=== PATIENT | female | born 1950 | race Caucasian/White ===

== ENCOUNTER 2022-02-02 13:23 | Emergency (ER) | payer OTHER, SELFPAY ==
[2022-02-02 13:38] VITALS: BP 131/80; PULSE 75; RESP 16; TEMP 36.2; O2SAT 97; BMI 22.7
--- NOTE | 2022-02-02 14:04 | ED_ITS ---
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 Patient noted that last week her toe seen to be more swollen and there was a little bit of redness. It continues this week and she is concerned regarding possible tick bite. Patient runs through the [employer]. She does not remember seeing a tick but notes that this is a possibility. She has not had any fever or chills. She notes no wound that she can remember. It is tender to the touch. However, she states that she has been in dress shoes as again she is administer. Related Data Home Medications Medication Instructions Recorded Confirmed No Known Home Medications 02/02/22 02/02/22 Allergies Allergy/AdvReac Type Severity Reaction Status Date / Time No Known Drug Allergies Allergy Verified 02/02/22 13:42 Review of Systems Narrative: Denies body aches. Const: Denies: fever or chills Musculo: Reports: joint pain PFSH PFSH Social History Smoking Status: Never smoker Do you use any of these nicotine containing products: None Second hand tobacco smoke exposure: No How often do you have a drink containing alcohol: 2-3 times a week AUDIT-C Alcohol total score: 3 Non-prescribed substance use: denies use Exam Const: Vital Signs, click to edit/add: Vital Signs - 24 hr 02/02/22 13:38 Temperature 97.2 F L Pulse Rate [Pulse Oximeter] 75 Respiratory Rate 16 Blood Pressure [Ri ght Upper Arm] 131/80 Pulse Oximetry 97 Oxygen Delivery Me thod Room Air Course Vital Signs Vital signs: Initial Vital Signs Temperature 97.2 F L 02/02/22 13:38 Temperature Source Temporal Artery Scan 02/02/22 13:38 Pulse Rate 75 02/02/22 13:38 Respiratory Rate 16 02/02/22 13:38 Blood Pressure 131/80 02/02/22 13:38 Blood Pressure Mean 97 02/02/22 13:38 Blood Pressure Position Sitting 02/02/22 13:38 Pulse Oximetry 97 02/02/22 13:38 Oxygen Delivery Method 02/02/22 13:38 Vital Signs Temperature 97.2 F L 02/02/22 13:38 Pulse Rate 75 02/02/22 13:38 Respiratory Rate 16 02/02/22 13:38 Blood Pressure 131/80 02/02/22 13:38 Pulse Oximetry 97 02/02/22 13:38 Oxygen Delivery Method 02/02/22 13:38 Temperature 97.2 F L 02/02/22 13:38 Pulse Rate 75 02/02/22 13:38 Respiratory Rate 16 02/02/22 13:38 Blood Pressure 131/80 02/02/22 13:38 Pulse Oximetry 97 02/02/22 13:38 Oxygen Delivery Method 02/02/22 13:38 MDM - Wound/Laceration MDM Narrative Medical decision making narrative: 1. Superficial cellulitis-at this time I do not think that we are dealing with a tick bite. I did state to Bre that I could not tell her for 100% that it was not a tick bite be given the fact that she is wearing shoes [place] be highly unusual attachment site. When 1 looks at her 2nd toe she has a corn or callus formation on the PIP joint. I am wondering if this was indeed the case on the 3rd toe and somehow she had some shearing of the skin or pressure in this area. She does have some slight surrounding erythema and therefore will treat her for cellulitis but will use doxycycline as the antibiotic of choice. Doxycycline 100 mg p.o. b.i.d. times 10 days. If she develops fever chills she will need to be seen and at that point have a tick panel done. I did state we would not be doing a tick panel in the ED today. Would recommend soaking of the wound and continued monitoring. 2. Disposition-home. Follow-up with primary MD. Return for worsening symptoms. Medical Records Attestation: I reviewed the patient's medical records. Discharge Plan Discharge Clinical Impression: Cellulitis Patient Disposition: Home, Self-Care Condition: Improved Additional Instructions: Start doxycycline as directed. Follow-up with your primary MD for ongoing symp toms. Seek medical attention for fever, chills, vomiting, increasing redness and as needed. Prescriptions: No Action No Known Home Medications Follow Up/Referrals: Genna Ramos MD [Primary Care Provider] - Stand Alone Forms: [employer] Info Instructions
--- NOTE | 2022-02-02 14:38 | ED_ITS ---
HPI - Wound/Laceration General Time Seen by Provider: 14:00 Date Seen: 02/02/22 Chief Complaint: Laceration/Wound Stated Complaint: possible tick bite on left toe Time Seen by Provider: 02/02/22 13:54 Source: patient, RN notes reviewed and old records reviewed Mode of arrival: ambulatory Limitations: no limitations History of Present Illness Onset (ago): day(s) Place: outdoors Associated symptoms: pain Related Data Home Medications Medication Instructions Recorded Confirmed No Known Home Medications 02/02/22 02/02/22 Allergies Allergy/AdvReac Type Severity Reaction Status Date / Time No Known Drug Allergies Allergy Verified 02/02/22 13:42 Review of Systems Const: Denies: fever, chills, fatigue or night sweats Cardio: Denies: chest pain or shortness of breath with exertion Resp: Denies: shortness of breath or cough GI: Denies: nausea Integ/Breast: Reports: skin tenderness; Denies: rash Neuro: Denies: headache Endo: Denies: fatigue Allergy/Immuno: Denies: hives PFSH PFSH Social History Smoking Status: Never smoker Do you use any of these nicotine containing products: None Second hand tobacco smoke exposure: No How often do you have a drink containing alcohol: 2-3 times a week AUDIT-C Alcohol total score: 3 Non-prescribed substance use: denies use Exam Narrative: Exam Narrative: Examination shows a dime-sized area firm callus with what appears to be dried in the center over the IP joint of the left 3rd toe. The 2nd toe has callus or corn formation over similar area. On the 3rd toe there is an peripheral area of mild erythema. Patient appears to be tender to the touch in this area. It is not excessively. Const: Vital Signs, click to edit/add: Vital Signs - 24 hr 02/02/22 13:38 Temperature 97.2 F L Pulse Rate [Pulse Oximeter] 75 Respiratory Rate 16 Blood Pressure [Ri ght Upper Arm] 131/80 Pulse Oximetry 97 Oxygen Delivery Me thod Room Air Course Vital Signs Vital signs: Initial Vital Signs Temperature 97.2 F L 02/02/22 13:38 Temperature Source Temporal Artery Scan 02/02/22 13:38 Pulse Rate 75 02/02/22 13:38 Respiratory Rate 16 02/02/22 13:38 Blood Pressure 131/80 02/02/22 13:38 Blood Pressure Mean 97 02/02/22 13:38 Blood Pressure Position Sitting 02/02/22 13:38 Pulse Oximetry 97 02/02/22 13:38 Oxygen Delivery Method 02/02/22 13:38 Vital Signs Temperature 97.2 F L 02/02/22 13:38 Pulse Rate 75 02/02/22 13:38 Respiratory Rate 16 02/02/22 13:38 Blood Pressure 131/80 02/02/22 13:38 Pulse Oximetry 97 02/02/22 13:38 Oxygen Delivery Method 02/02/22 13:38 Temperature 97.2 F L 02/02/22 13:38 Pulse Rate 75 02/02/22 13:38 Respiratory Rate 16 02/02/22 13:38 Blood Pressure 131/80 02/02/22 13:38 Pulse Oximetry 97 02/02/22 13:38 Oxygen Delivery Method 02/02/22 13:38 MDM - Wound/Laceration MDM Narrative Medical decision making narrative: 1. Cellulitis-patient appears to have callus formation that was perhaps further irritated or shear it is there does appear to be some inner callus dried blood. I did tell patient I could not with absolute 100 per certainty tell her that this was not from a tick bite. However it would be highly unusual spot for a tick to bite. That being said she does have surrounding erythema of this area and thus will treat with doxycycline 100 mg p.o. b.i.d. times 10 days. This would both treat cellulitis as well as any possibility of a tick bite. Patient does not have a history of allergies. Would continue to monitor this area and s [place] medical attention for worsening symptoms. Discharge Plan Discharge Clinical Impression: Cellulitis Patient Disposition: Home, Self-Care Condition: Improved Additional Instructions: Start doxycycline as directed. Follow-up with your primary MD for ongoing symptoms. Seek medical attention for fever, chills, vomiting, increasing redness and as needed. Prescriptions: No Action No Known Home Medications Follow Up/Referrals: Genna Ramos MD [Primary Care Provider] - Stand Alone Forms: [employer] Payment Info Instructions
== END 2022-02-02 14:49 | disposition home or self-care (01) ==
PROVIDERS: Emergency Provider Family Medicine; PCP Family Medicine
DX: L03.032 Cellulitis of left toe (principal)
CPT/HCPCS: 99282; 99283; 99284

== ENCOUNTER 2023-02-02 07:42 | Outpatient (CLI) | payer OTHER, SELFPAY | END 2023-02-02 07:43 | disposition home or self-care (01) | LOC: NFLDREF 11:10 | PROVIDERS: PCP Family Medicine; Referring Provider Family Medicine; Visit Provider Family Medicine | DX: Z00.00 Encounter for general adult medical examination without abnormal findings (principal); R79.89 Other specified abnormal findings of blood chemistry; R17 Unspecified jaundice; Z13.6 Encounter for screening for cardiovascular disorders | CPT/HCPCS: 80053; 80061 ==

== ENCOUNTER 2023-04-21 07:44 | Outpatient (CLI) | payer OTHER, SELFPAY ==
--- NOTE | 2023-04-21 09:21 | W.ANESCHARGE ---
Anesthesia Charges Start Date/Time Anesthesia Start Date: 04/21/23 Anesthesia Start Time: 08:46 Stop Date/Time Anesthesia Stop Date: 04/21/23 Anesthesia Stop Time: 09:19
--- NOTE | 2023-04-21 12:15 | W.ANESCHARGE ---
Anesthesia Charges Start Date/Time Anesthesia Start Date: 04/21/23 Anesthesia Start Time: 08:46 Stop Date/Time Anesthesia Stop Date: 04/21/23 Anesthesia Stop Time: 09:19 Summary Extremes of Age - Over 70 or under 1: MDA
== END 2023-04-21 07:45 | disposition home or self-care (01) ==
LOC: OP CLINIC 07:44
PROVIDERS: PCP Family Medicine; Visit Provider Surgery
DX: Z12.11 Encounter for screening for malignant neoplasm of colon (principal); K63.5 Polyp of colon
CPT/HCPCS: 00811; 45385; 88305; 99100; J2704

== ENCOUNTER 2023-05-07 14:30 | Outpatient (CLI) | payer OTHER, SELFPAY ==
--- NOTE | 2023-05-07 15:00 | CRLHL7_ITS ---
For Patients: As a result of the Century Cures Act, medical imaging exams and procedure reports are released immediately into your electronic medical record. You may view this report before your referring provider. If you have questions, please contact your health care provider. DXA BONE MINERAL DENSITY STUDY Reason for exam: Asymptomatic menopausal state. Current height (in): 61. Weight (lb): 130. Menopause age: 59. Ethnicity: White. 1. Have you had a previous hip or vertebral fracture? No. 2. Have you had any fractures during your adult life which did not result from significant trauma (e.g., auto accident)? No. 3. Did either of your parents have a hip fracture? Yes. 4. Do you smoke? No. 5. Have you ever taken Glucocorticoids? No. 6. Do you have rheumatoid arthritis? No. 7. Do you have secondary osteoporosis? No. 8. Do you drink 3 or more alcoholic drinks per day? No. 9. Are you being treated for osteoporosis? No. 10. Have you ever taken any of the following medications: Actonel, Evista, Fosamax, Miacalcin, Reclast, Boniva, Forteo, HRT (i.e., estrogen/hormone therapy), Protelos, Prolia, Vitamin D, Calcium, other ??? please specify. ANSWER: Yes, vitamin D and calcium. 11. Do you have any of the following medical conditions: Anorexia or bulimia, asthma or emphysema, end stage renal disease, hyperparathyroidism, any seizure disorders, cancer, inflammatory bowel diseases, hysterectomy, other ??? please specify. ANSWER: Yes, cancer. 12. What was your maximum height (inches)? 61.5. 13. Do you perform weight bearing exercise regularly? No. 14. Do you regularly consume dairy products? Yes. 15. Do you drink caffeinated beverages? Yes. If female: 16. At what age did your period start? 14. 17. Are you premenopausal? No. 18. How many full-term pregnancies have you had? 1. 19. Have you ever missed your period for more than 6 months in a row (not including or menopause)? No. TECHNIQUE: Bone mineral density study was performed using the [employer] FINDINGS: The results of the study expressed as bone mineral density (BMD) are as follows: Lumbar spine L1 to L4: BMD: 1.014 g/cm2. T-score: -0.3. Z-score: 1.9 Neck Left: BMD: 0.606 g/cm2. T-score: -2.2. Z-score: -0.3 Right: BMD: 0.528 g/cm2. T-score: -2.9. Z-score: -1.0 Total Left: BMD: 0.705 g/cm2. T-score: -1.9. Z-score: -0.3 Right: BMD: 0.666 g/cm2. T-score: -2.3. Z-score: -0.7 IMPRESSION: Osteoporosis. Duane Judd M.D. Diagnostic Radiologist [email or web address] ENRIQUE/[email or web address] eng/Dictated by: Duane Judd MD @ 05/08/2023 8:29:00 AM (Electronically Signed)
== END 2023-05-07 14:31 | disposition home or self-care (01) ==
LOC: RAD 14:31
PROVIDERS: PCP Family Medicine; Visit Provider Family Medicine
DX: Z78.0 Asymptomatic menopausal state (principal); M81.0 Age-related osteoporosis without current pathological fracture
CPT/HCPCS: 77080

== ENCOUNTER 2023-05-08 10:00 | Outpatient (CLI) | payer OTHER, SELFPAY ==
--- NOTE | 2023-05-08 10:15 | CRLHL7_ITS ---
For Patients: As a result of the Century Cures Act, medical imaging exams and procedure reports are released immediately into your electronic medical record. You may view this report before your referring provider. If you have questions, please contact your health care provider. BILATERAL SCREENING MAMMOGRAM WITH COMPUTER-AIDED DETECTION AND TOMOSYNTHESIS TECHNIQUE: CC and MLO views were obtained. These mammographic images have been obtained using full-field digital technique. These mammographic images were interpreted with the benefit of computer-aided detection. Breast tomosynthesis was used in this interpretation. COMPARISON FILM: 08/01/19. FINDINGS: There are scattered areas of fibroglandular density. IMPRESSION: There is no radiographic evidence for malignancy. ASSESSMENT: BI-RADS Category 1: Negative RECOMMENDATION: Routine screening mammogram in 1 year. A lay language report of this examination will be provided to the patient. DUANE CHEW M.D. Diagnostic Radiologist [email or web address] ENRIQUE/[email or web address] Transcribed: 05/08/2023, 1:[address]/Dictated by: Duane Chew MD @ 05/08/2023 12:00:00 PM (Electronically Signed)
== END 2023-05-08 10:01 | disposition home or self-care (01) ==
LOC: MAMMO 10:00
PROVIDERS: PCP Family Medicine; Visit Provider Family Medicine
DX: Z12.31 Encounter for screening mammogram for malignant neoplasm of breast (principal); Z78.0 Asymptomatic menopausal state; M81.0 Age-related osteoporosis without current pathological fracture
CPT/HCPCS: 77063; 77067

== ENCOUNTER 2023-05-11 07:40 | Outpatient (CLI) | payer OTHER, SELFPAY | END 2023-05-11 07:41 | disposition home or self-care (01) | LOC: NFLDREF 05-15 10:16 | PROVIDERS: PCP Family Medicine; Referring Provider Family Medicine; Visit Provider Family Medicine | DX: R17 Unspecified jaundice (principal) | CPT/HCPCS: 80076 ==

== ENCOUNTER 2023-08-10 09:13 | Day surgery (SDC) | payer OTHER, SELFPAY ==
[2023-08-10] VITALS (8 sets, daily range): BP systolic 107–145; BP diastolic 68–96; PULSE 72–93; RESP 16; TEMP 36.6–37.2; O2SAT 97–99; BMI 26.6
[2023-08-10] MEDS: LACTATED RINGERS 1000 ML 1,000 ML 100 ML IV (09:10)
--- OUTSIDE RECORDS SUMMARY | 2023-08-10 09:18 | XMS_ITS | Clinical Summary ---
Author Name Unknown Organization [facility] Address [address] [address] Care Team Providers Care Imaging System Administrator Name Role Phone Found, No Pcp MD Primary Care Provider Unavailab le Source Comments You are receiving this document as you are listed as the primary care provider,follow-up provider, or the patient has been referred to you for consultation.This is in compliance with the Medicare and[facility] EHR Incentive Program,which states Providers who transition their patient to another setting of careor provider of care or refers their patient to another provider of care shouldprovide summary care record for each transition of care or referral. inEarth Allergies No known active allergies Medications Medication Sig Dispensed Refills Start Date End Date Status drug not in computer Adityaklee Vitalie Vitamin C Vitamin B Vitamin D Vitamin E Calcium Active desonide (DESOWEN) 0.05 % lotion Apply to affected area face 1-2 times daily prn 60 mL 3 03/14/2016 Active Immunizations Name Administration Dates Next Due HepA Adult (19+ yrs) 09/19/2005 IPV (Polio) 09/19/2005 MCV4 (Menactra) 09/19/2005 Tdap 09/19/2005 YF (Yellow Fever) 09/19/2005 Social History Tobacco Use Types Packs/Day Years Used Date Smoking Tobacco: Never Alcohol Use Standard Drinks/Week Comments Not Asked 0 (1 standard drink = 0.6 oz pur e alcohol) Sex and Gender Information Value Date Recorded Sex Assigned at Not on file Gender Identity Not on file Sexual Orientation Not on file Last Filed Vital Signs Vital Sign Reading Time Taken Comments Blood Pressure 120/70 09/19/2005 9:00 AM DIRECTOR LIFE SCIENCES Pulse - - Temperature - - Respiratory Rate - - Oxygen Saturation - - Inhaled Oxygen Concentration - - Weight - - Height - - Body Mass Index - - Plan of Treatment Health Maintenance Due Date Last Done Comments Colon Cancer Screening Plan Due 1950 Hep C Screening (Preventive Services) 1950 Mammogram 1950 Adult Preventive Visit 1969 Cholesterol 1996 Zoster/Shingles (1 of 2) 2001 HepA (2 of 2 - Risk 2-dose series) 03/21/20062005 DTaP/Tdap/Td (2 - Tdap) 09/20/2015 09/19/2005 Pneumococcal 65+ Yrs (1 - PCV) 2016 COVID-19 Vaccine (1 - 2022-2 4 season) 2023 Influenza (#1) 2023 IPV (Polio) Aged Out 09/19/2005 No longer eligi ble based on patient's age to complete this topic MCV4 Aged Out 09/19/2005 No longer eligi ble based on patient's age to complete this topic HepB Aged Out No longer eligi ble based on patient's age to complete this topic Hib Aged Out No longer eligi ble based on patient's age to complete this topic Care Teams Imaging System Administrator Relationship Specialty Start Date End Date Found, No Pcp, [address] [place] [address] PCP - General 10/28/17
--- OUTSIDE RECORDS SUMMARY | 2023-08-10 09:19 | XMS_ITS | Clinical Summary ---
Author Name Unknown Organization [employer] [facility] Address [place], [place] [address] Care Team Providers Care Adult Probation Officer Name Role Phone Genna Ramos MD Primary Care Provider + Allergies No known active allergies Medications Medication Sig Dispensed Refills Start Date End Date Status durable medical equipment (DME)Indications:Bunion of left foot,Hallux valgus, left,Hammertoe of left foot,Metatarsalgia of left foot AIR SELECT, SHORT, SMALL, REF: 01ES-S 0 07/22/2023 Active Encounters Date Type Department Care Team Description 07/22/2023 9:15 AM MANAGER MENTAL HEALTH Office Visit [facility] [address] [place] [address] Homero Vo DPM Follow Up (Left foot, final surgical discussion. DOS 08/10/23) 07/22/2023 Travel 07/21/2023 Telephone [facility] [address] [place] [address] Homero Vo DPM Error-please disregard 07/17/2023 Telephone [facility] [address] [place] [address] Homero Vo DPM Questions from Last 3 Months Social History Tobacco Use Types Packs/Day Years Used Date Smoking Tobacco: Never Smokeless Tobacco: Never Tobacco Cessation:Counseling Given: Yes Sex and Gender Information Value Date Recorded Sex Assigned at Not on file Gender Identity Not on file Sexual Orientation Not on file Obstetrics History Last Filed Vital Signs Vital Sign Reading Time Taken Comments Blood Pressure 121/69 05/06/2023 3:02 PM MANAGER MENTAL HEALTH tow er Pulse 87 07/22/2023 9:28 AM MANAGER MENTAL HEALTH Temperature - - Respiratory Rate - - Oxygen Saturation 95% 07/22/2023 9:28 AM MANAGER MENTAL HEALTH Inhaled Oxygen Concentration - - Weight 67.6 kg (149 lb) 07/22/2023 9:28 AM MANAGER MENTAL HEALTH Height - - Body Mass Index - - Plan of Treatment Upcoming Encounters Date Type Department Care Team (Late st Contact Info) Description 08/12/2023 11:00 AM MANAGER MENTAL HEALTH Office Visit [facility] [address] [place] [address] Homero Vo DPM [address] [place] [address] 08/26/2023 11:00 AM MANAGER MENTAL HEALTH Office Visit [facility] [address] [place] [address] Homero Vo DPM [address] [place] [address] Health Maintenance Due Date Last Done Comments Tdap 1962 Depression screening for age 12+ 1963 BMI (ht and wt on same day) for age 18+ 1969 Hepatitis C screening for ag e 18-79 1969 Tetanus booster 1971 Colonoscopy through age 75 1996 Lipids for age 45-75 1996 Mammogram for age 45-75 1996 Zoster (shingles) series for age 50+ (1 of 2) 2001 DEXA/DXA scan for age 65+ 2016 Medicare Wellness for age 65+ 2016 Pneumococcal series for age 65+ (1 of 1 - PCV) 2016 COVID-19 vaccine series (2022-24 season) 2023 03/25/2022, 12/10/2021, 04/25/2021, Additional history exists Influenza for age 65+ 02/20/2023 Care Teams Adult Probation Officer Relationship Specialty Start Date End Date Genna Ramos MD [address] [place] [address] PCP - General Family Practice 05/06/23
[2023-08-10] MEDS: SODIUM CHLORIDE 0.9 % (FLUSH) 10 ML SYRINGE IVF (10:22)
[2023-08-10] MEDS: MIDAZOLAM HCL 1 MG/ML inj IVP (10:35)
[2023-08-10] MEDS: fentaNYL 100 MCG/2 ML inj IVP (10:35)
--- NOTE | 2023-08-10 10:54 | SUR.PREOP ---
TIME?OUT:?1035 PT/RN/MDA?VERIFICATION?OF?SURGICAL?SITE,?PROCEDURE,?AND?CONSENT OBTAINED?PRIOR?TO?INVASIVE?PROCEDURE.
[2023-08-10] MEDS: CEFAZOLIN 2 GM INJ IVP (10:55)
--- NOTE | 2023-08-10 11:00 | XR_ITS ---
Patient: KEITH HDZ Facility:?[facility] Patient ID:?[id number] Site Patient ID:?[id number]. Site :?[id number] Study:?XRay-Extremity Left FOOT INTRA OP-08/10/2023 1:35:09 PM Ordering Physician:MAINE Final Report: Indication: Radiographs left foot, intraoperative Technique: Intraoperative fluoroscopy, 3 images Comparison: None Findings: Three intraoperative fluoroscopic images. Plate and screw hardware across the top of the great toe metatarsal phalangeal joint as well as 2 trans osseous partially threaded screws. Right 2nd 3rd 4th and 5th metatarsal head resection. Percutaneous pins across the 2nd 3rd and 4th toes. Impression: Intraoperative fluoroscopy of the left foot. Please see procedure note for details. Total fluoro time 17.4 seconds. Dictated by Jannie Baldwin MD @ 08/11/2023 7:52:53 AM Signed by:?Jannie Baldwin MD @08/11/2023 7:52:53 AM (Electronic Signature)
--- NOTE | 2023-08-10 11:05 | P.ANES_ITS ---
Anesthesia Charges Start Date/Time Anesthesia Start Date: 08/10/23 Anesthesia Start Time: 10:45 Stop Date/Time Anesthesia Stop Date: 08/10/23 Anesthesia Stop Time: 13:59 Summary Extremes of Age - Over 70 or under 1: ELEMENT[employer] S[employer]OL PRINCIPAL
--- NOTE | 2023-08-10 11:05 | P.NB_ITS ---
Nerve Block Nerve Block Time Seen by Provider: 10:40 Date Seen: 08/10/23 Type of block requested by surgeon for post-operative analgesia: adductor canal Side: left Time out performed: Yes Verification of patient name: Yes Verification of date of : Yes Site marking: site marked Name of person performing procedure: Clark Continuous monitoring Was continuous monitoring of O2 sat, B/P, driver medic, recorded every 15 minutes?: Yes Procedure Checklist: sterile prep, needles and gloves Ultrasound guided. Images saved: Yes Medications given in 5ml increments after negative aspiration: Ropivicaine %: 0.5 mL: 20 Needle gauge: 20 Patient tolerated procedure well: Yes Additional comments: Needle noted adjacent to nerve Block Charges Block Charge (with Pro Fee): Femoral Nerve Use of Ultrasound Machine for Block: Yes- US Guidance/pain block
--- NOTE | 2023-08-10 11:06 | P.NB_ITS ---
Nerve Block Nerve Block Time Seen by Provider: 10:40 Date Seen: 08/10/23 Type of block requested by surgeon for post-operative analgesia: popliteal Side: left Time out performed: Yes Verification of patient name: Yes Verification of date of : Yes Site marking: site marked Name of person performing procedure: Clark Continuous monitoring Was continuous monitoring of O2 sat, B/P, monitoring and evaluation advisor, recorded every 15 minutes?: Yes Procedure Checklist: sterile prep, needles and gloves Ultrasound guided. Images saved: Yes Medications given in 5ml increments after negative aspiration: Ropivicaine %: 0.5 mL: 20 Needle gauge: 22 Patient tolerated procedure well: Yes Additional comments: Needle noted adjacent to nerve Block Charges Block Charge (with Pro Fee): Sciatic Nerve Use of Ultrasound Machine for Block: Yes- US Guidance/pain block
[2023-08-10] MEDS: BUPIVACAINE 0.5% 30 ML INJECTION (13:43)
--- NOTE | 2023-08-10 14:02 | W.ANESCHARGE ---
Anesthesia Charges Start Date/Time Anesthesia Start Date: 08/10/23 Anesthesia Start Time: 10:45 Stop Date/Time Anesthesia Stop Date: 08/10/23 Anesthesia Stop Time: 13:59 Summary Extremes of Age - Over 70 or under 1: OCCUPATIONAL HEALTH NURSING DIRECTOR
--- NOTE | 2023-08-10 14:18 | P.GSOP_ITS ---
Operative Note Date of procedure: 08/10/23 Pre-op diagnosis: 1. Hallux valgus with bunion left 2. Hammertoe deformity 2nd digit left 3. Hammertoe deformity 3rd digit left 4. Hammertoe deformity 4th digit left 5. Hammertoe deformity 5th digit left 6. Metatarsalgia left foot Post-op diagnosis: 1. Hallux valgus with bunion left 2. Hammertoe deformity 2nd digit left 3. Hammertoe deformity 3rd digit left 4. Hammertoe deformity 4th digit left 5. Hammertoe deformity 5th digit left 6. Metatarsalgia left foot Type of Procedure: 1. First MPJ fusion left foot 2. Hammertoe repair 2nd digit left foot 3. Hammertoe repair 3rd digit left 4. Hammertoe repair 4th digit left 5. Hammertoe repair 5th digit left foot 6. Metatarsal head resection 2nd left foot 7. Metatarsal head resection 3rd left foot 8. Metatarsal head resection 4th left foot 9. Metatarsal head resection 5th left foot Indications: Patient had had longstanding left foot pain and has elected to have surgical reconstruction. I reviewed the procedure, recovery, expectations and potential complications. These include but not limited to: Poor wound healing, in fection, under correction, over correction, nonunion, delayed union, nonunion, hardware irritation or failure, nerve injury, deep venous thrombosis, pulmonary embolism, potentially future surgery, complex regional pain syndrome, possible . All questions answered written consent obtained. Procedure Description: After discussing the risks and benefits of the procedure, the patient signed informed consent.? The operative site was marked and the patient was brought to the operating room and placed on the operating table in supine position.? Care was taken to pad the patient's pressure points.?? The patient was then given sedation by anesthesia.??A preoperative popliteal and adductor block performed by Anesthesia. The operative site was then prepped and draped in the usual sterile fashion.? A time-out was then performed. Dorsal medial curvilinear incision was made over the 1st metatarsophalangeal joint. The incision was carried down through skin subcutaneous tissues. Linear capsular incision was made. The enlarged medial and dorsal bony prominences resected with a sagittal saw. Guide pin was placed in the 1st metatarsal head i n a 18 mm Reamer used to remove the cartilage and subchondral bone. Guide pin was removed and placed in the base of the proximal phalanx. Corresponding 18 mm Reamer was used to remove the cartilage and subchondral bone. Unfortunately there was a fracture to the lateral base of the proximal phalanx. This only involved proximally 25% of the articular surface. We thoroughly irrigated normal sterile saline. Opposing fusion surfaces fenestrated with K-wire. Weightbearing was simulated with a instrument lid and the hallux positioned optimally and temporally fixated with K-wire. C-arm confirmed position. Guide pin was then placed from distal medial to proximal lateral. 3.0 mm cannulated headless screw inserted using standard technique. 6 hole 1st MPJ fusion plate was applied dorsally. Three 3.0 mm locking screws placed distally and one 3.0 mm locking screw placed proximal. Additional 3.0 mm nonlocking screw placed proximal. Reduction forceps was applied to the lateral base fracture and a 2.5 mm headless cannulated screw was placed dorsal medial to plantar lateral across the fusion site and capturing the fracture fragment. C-arm confirmed excellent alignment. Wound was irrigated normal sterile saline. Capsular tissue repaired with 3-0 Vicryl. Subcutaneous tissues reapproximated 4-0 Monocryl and skin closed with 4-0 Prolene. Linear incision was made dorsally between the 2nd and 3rd metatarsal heads. Incision was carried down through skin and subcutaneous tissues. Blunt dissection carried down to the metatarsophalangeal joint of the 2nd metatarsal. Linear incision was made exposing the 2nd metatarsal head. Using a sagittal saw the 2nd metatarsal head was resected. Blunt dissection was then carried laterally to the 3rd metatarsophalangeal joint and a linear incision was made exposing the 3rd metatarsal head. Using sagittal saw the 3rd metatarsal head was resected. Wound was thoroughly irrigated with normal sterile saline. Linear incision was made dorsally between the 4th and 5th metatarsal heads. Incision was carried down through skin and subcutaneous tissues. Blunt dissection carried down to the metatarsophalangeal joint of the 4th metatarsal. Linear incision was made exposing the 4th metatarsal head. Using a sagittal saw the 4th metatarsal head was resected. Blunt dissection was then carried laterally to the 5th metatarsophalangeal joint and a linear incision was made exposing the 5th metatarsal head. Using sagittal saw the 5th metatarsal head was resected. Wound was thoroughly irrigated with normal sterile saline. C-arm confirmed appropriate resection length and maintenance of normal metatarsal parabola. Linear semielliptical incision was made over the dorsal PIPJ 2nd digit excising the callus tissue. Transverse incision made through the joint capsule and the medial and lateral collateral ligaments released. Head of the proximal phalanx was resected using an oscillating saw. Base of middle phalanx resected using oscillating saw. A 0.045 smooth K-wire was introduced to the base of the middle phalanx driven out the tip of the toe. Fusion site was held together and the K- wire are drilled retrogradely back into the proximal phalanx. C-arm confirmed appropriate length and alignment. Wounds were thoroughly irrigated normal sterile saline. Redundant extensor tendon was excised and repaired with 4-0 Vicryl. Skin closed with 4-0 Prolene. K-wire was bent cut and capped with a Jergens ball. Linear semielliptical incision was made over the dorsal PIPJ 3rd digit excising the callus tissue. Transverse incision made through the joint capsule and the medial and lateral collateral ligaments released. Head of the proximal phalanx was resected using an oscillating saw. Base of middle phalanx resected using o scillating saw. A 0.045 smooth K-wire was introduced to the base of the middle phalanx driven out the tip of the toe. Fusion site was held together and the K- wire are drilled retrogradely back into the proximal phalanx. C-arm confirmed appropriate length and alignment. Wounds were thoroughly irrigated normal sterile saline. Redundant extensor tendon was excised and repaired with 4-0 Vicryl. Skin closed with 4-0 Prolene. K-wire was bent cut and capped with a Jergens ball. Linear incision was made over the dorsal PIPJ 4th digit. Transverse incision made through the joint capsule and the medial and lateral collateral ligaments released. Head of the proximal phalanx was resected using an oscillating saw. Base of middle phalanx resected using oscillating saw. A 0.045 smooth K-wire w as introduced to the base of the middle phalanx driven out the tip of the toe. Fusion site was held together and the K-wire are drilled retrogradely back into the proximal phalanx. C-arm confirmed appropriate length and alignment. Wounds were thoroughly irrigated normal sterile saline. Redundant extensor tendon was excised and repaired with 4-0 Vicryl. Skin closed with 4-0 Prolene. K-wire was bent cut and capped with a Jergens zoey. Linear semielliptical incision was made over the dorsal PIPJ 5th digit. Transverse incision made through the joint capsule and the medial and lateral collateral ligaments released. Head of the proximal phalanx was resected using an oscillating saw. Wounds were thoroughly irrigated normal sterile saline. Redundant extensor tendon was excised and repaired with 4-0 Vicryl. Skin closed with 4-0 Prolene rotating toe into a rectus position. Tourniquet was released with some active bleeding that ceased with cautery and normal clotting. Remaining open wounds were thoroughly irrigated normal sterile saline. Remaining skin incisions were closed with combination of 4-0 Monocryl and 4-0 Prolene. Normal capillary fill time returned all digits. 10 mL of 0.5% Marcaine plain injected just proximal to the incision sites. Sterile dressings were then applied holding the toes in rectus position. The patient was then woken and transported to the recovery area in stable condition. The patient tolerated the procedure well. She was placed in a well-padded short cam boot. She was discharged per Anesthesia. She was given both written and verbal postop instructions. Oxycodone for pain. she is partial weight- bearing to the heel for transfers in the Cam boot with crutches. Findings: Complications: Fracture of the proximal phalanx base during reaming repaired with out difficulty. Tourniquet: Ankle tourniquet at 250 mm Hg Implants: Ar[employer] 6 hole 1st MPJ fusion plate x1, 3.0 mm cannulated the screw x1, 2.5 mm cannulated headless screw x1, 3.0 mm locking screws times 4, 3.0 mm nonlocking screw x1, 0.045 smooth K-wires x3. Anesthesia: MAC, regional and local Surgeon: Homero Vo DPM Estimated blood loss (mL): 30 Condition: stable Disposition: same day
== END 2023-08-10 16:04 | disposition home or self-care (01) ==
LOC: OR 09:14
PROVIDERS: PCP Family Medicine; Visit Provider Podiatrist
PROC: (CPT 28740; principal; 2023-08-10 11:00)
PROC: (CPT 28285; 2023-08-10 11:00)
DX: M20.12 Hallux valgus (acquired), left foot (principal); M21.612 Bunion of left foot; M20.42 Other hammer toe(s) (acquired), left foot; G89.18 Other acute postprocedural pain; M77.42 Metatarsalgia, left foot
CPT/HCPCS: 28750; 28285 ×4; 28112; 28113; 01480; 64445; 64447; 73620; 76000; 76942; 97116; 97161; 99100; C1713; J0665; J0690; J1100; J2250; J2371; J2405; J2704; J2795; J3010; J7120